=== PATIENT | male | born 1965 | race Caucasian/White ===

== ENCOUNTER 2020-12-17 08:32 | Emergency (ER) | payer OTHER ==
[~2020-12-17] VITALS: Ht 188 cm; Wt 99.8 kg
[2020-12-17] MEDS ORDERED: METPRE4DP PO (08:58)
== END 2020-12-17 09:10 | disposition home or self-care (01) ==
LOC: ER 08:32
DX: T78.40XA Allergy, unspecified, initial encounter (principal); L29.9 Pruritus, unspecified
CPT/HCPCS: 99283; J7512

== ENCOUNTER 2021-03-06 11:14 | Day surgery (SDC) | payer OTHER ==
[~2021-03-06] VITALS: Ht 188 cm; Wt 88.9 kg
[~2021-03-06 11:14] MED LIST: METPRE4DP PO
== END 2021-03-06 13:06 | disposition home or self-care (01) ==
LOC: ORSCSDS 11:14
PROVIDERS: Student in an Organized Health Care Education/Training Program
PROC: 0DBL8ZX Excision of Transverse Colon, Via Natural or Artificial Opening Endoscopic, Diagnostic (ICD-10-PCS; principal; 2021-03-06 12:30)
DX: Z12.11 Encounter for screening for malignant neoplasm of colon (principal); D12.3 Benign neoplasm of transverse colon; K57.30 Diverticulosis of large intestine without perforation or abscess without bleeding
CPT/HCPCS: 88305; J2405; J2704; J7120

== ENCOUNTER 2021-04-13 00:02 | Emergency (ER) | payer OTHER ==
[~2021-04-13] VITALS: Ht 182.9 cm; Wt 93.0 kg
[2021-04-13] MEDS ORDERED: Percocet 5-3251 EACH PO (02:40)
[2021-04-13] MEDS ORDERED: ONDA4ODT MM (02:40)
[2021-04-13] MEDS ORDERED: CEPH500 PO (02:57)
== END 2021-04-13 03:06 | disposition home or self-care (01) ==
LOC: ER 00:02
DX: S68.610A Complete traumatic transphalangeal amputation of right index finger, initial encounter (principal); S68.612A Complete traumatic transphalangeal amputation of right middle finger, initial encounter; S68.614A Complete traumatic transphalangeal amputation of right ring finger, initial encounter; S68.616A Complete traumatic transphalangeal amputation of right little finger, initial encounter; W23.0XXA Caught, crushed, jammed, or pinched between moving objects, initial encounter; Y92.89 Other specified places as the place of occurrence of the external cause; Y99.0 Civilian activity done for income or pay
CPT/HCPCS: 26951; 73120; 90471; 90714; 96365-59; 96375-59; 96376-59; 99284-25; A9270; J0690; J1170; J2405; J3010; J7030

== ENCOUNTER 2021-04-16 18:22 | Emergency (ER) | payer OTHER ==
[~2021-04-16] VITALS: Ht 182.9 cm; Wt 81.7 kg
[~2021-04-16 18:22] MED LIST changes: +CEPH500 PO; +ONDA4ODT MM; +Percocet 5-3251 EACH PO
== END 2021-04-16 20:25 | disposition home or self-care (01) ==
LOC: ER 18:22
DX: Z76.0 Encounter for issue of repeat prescription (principal); Z87.828 Personal history of other (healed) physical injury and trauma
CPT/HCPCS: 99282; A9270

== ENCOUNTER → 2021-05-09 | Outpatient (CLI) | payer OTHER | END | disposition home or self-care (01) | LOC: LAB 10:09 → LAB SHORT 10:09 | DX: L03.113 Cellulitis of right upper limb (principal) | CPT/HCPCS: 87070; 87077; 87147; 87186; 87205 ==

== ENCOUNTER 2023-02-21 18:03 | Inpatient (IN) | payer OTHER ==
[~2023-02-21] VITALS: Ht 188 cm; Wt 103.0 kg
[2023-02-21] VITALS (13 sets, daily range): BP systolic 113–160; BP diastolic 66–100
[2023-02-21 18:18] LABS: BASOPHILS ABSOLUTE AUTO 0.04 K/mm3 (0.00-0.23); BASOPHILS PERCENT AUTO 0 % (0-2); EOSINOPHILS ABSOLUTE AUTO 0.19 K/mm3 (0.00-0.68); EOSINOPHILS PERCENT AUTO 2 % (0-6); Hematocrit 47.4 % (37.0-53.0); Hemoglobin 16.1 g/dL (13.5-17.5); IMMATURE GRAN ABSOLUTE AUTO 0.03 K/mm3 (0.00-0.10); IMMATURE GRAN PERCENT AUTO 0 % (0-1); LYMPHOCYTES PERCENT AUTO 26 % (21-46); MONOCYTES ABSOLUTE AUTO 0.94 K/mm3 (0.16-1.47); MONOCYTES PERCENT AUTO 8 % (4-13); Mean Corpuscular HGB 31.6 pg (26.0-34.0); Mean Corpuscular Volume 93 fL (80-100); NEUTROPHILS ABSOLUTE AUTO 7.75 K/mm3 (1.96-9.15); NEUTROPHILS PERCENT AUTO 64 % (41-73); Platelet Count 263 K/mm3 (150-400); RDW Standard Deviation 44.9 fL (35.1-46.3); Red Blood Cell Count 5.09 M/mm3 (4.30-5.90); White Blood Cell Count 12.15 K/mm3 (4.00-11.30)
[2023-02-21 18:35] LABS: Albumin, Blood 4.1 g/dL (3.4-5.0); Bilirubin, Total 0.5 mg/dL (0.1-1.0); Bun/Creatinine Ratio 22.8 (12.0-20.0); Creatinine, Blood 1.01 mg/dL (0.60-1.20); Globulin, Blood 4.1 g/dL (2.2-4.0); Potassium, Blood 4.2 mmol/L (3.5-5.5); Total Protein, Blood 8.2 g/dL (6.4-8.2)
[2023-02-21 19:17] LABS: Anti-Xa UFH, PHA Monitoring <0.10 IU/mL; Prothrombin Time Results 10.5 Sec (9.7-11.5)
[2023-02-21] MEDS ORDERED: TADALAFIL20 MG PO (20:22)
[2023-02-21] MEDS ORDERED: TRAZ50 PO (20:22)
[2023-02-21] MEDS ORDERED: IBUP600 PO (20:23)
[2023-02-21] MEDS ORDERED: NEURONTIN300 MG PO (20:24)
--- NOTE | 2023-02-21 20:30 | NUR ---
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 REPORT RECEIVED. PT DENIES CHEST PAIN OR PRESSURE. GOOD HISTORIAN. PT'S TO ROOM. PARTICIPATES IN INTERVIEW, AND ASSESSMENT. WILL REVIEW CHART AND PLAN OF CARE FOR THIS PT.
--- NOTE | 2023-02-21 22:19 | NUR ---
DR RAMIREZ COMES BY TO SEE PT. GIVES UPDATE ON PROCEDURE TO PT. ORDERS RECEIVED. PT CONTINUES WITHOUT COMPLAINTS. HAS HAD WATER AND SOME FOOD WITHOUT N/V.
[2023-02-22] VITALS (16 sets, daily range): BP systolic 116–158; BP diastolic 57–127
[2023-02-22 03:46] LABS: BASOPHILS ABSOLUTE AUTO 0.02 K/mm3 (0.00-0.23); BASOPHILS PERCENT AUTO 0 % (0-2); EOSINOPHILS ABSOLUTE AUTO 0.01 K/mm3 (0.00-0.68); EOSINOPHILS PERCENT AUTO 0 % (0-6); Hematocrit 45.7 % (37.0-53.0); Hemoglobin 15.9 g/dL (13.5-17.5); IMMATURE GRAN ABSOLUTE AUTO 0.02 K/mm3 (0.00-0.10); IMMATURE GRAN PERCENT AUTO 0 % (0-1); LYMPHOCYTES ABSOLUTE AUTO 1.48 K/mm3 (0.84-5.20); LYMPHOCYTES PERCENT AUTO 14 % (21-46); MONOCYTES ABSOLUTE AUTO 0.86 K/mm3 (0.16-1.47); MONOCYTES PERCENT AUTO 8 % (4-13); Mean Corpuscular HGB 31.9 pg (26.0-34.0); Mean Corpuscular HGB Conc 34.8 g/dL (31.5-36.5); Mean Corpuscular Volume 92 fL (80-100); Mean Platelet Volume 10.3 fL (9.1-12.4); NEUTROPHILS ABSOLUTE AUTO 8.14 K/mm3 (1.96-9.15); NEUTROPHILS PERCENT AUTO 77 % (41-73); Platelet Count 226 K/mm3 (150-400); RDW Coefficient Variation 13.1 % (11.7-14.2); Red Blood Cell Count 4.98 M/mm3 (4.30-5.90); White Blood Cell Count 10.53 K/mm3 (4.00-11.30)
[2023-02-22 04:24] LABS: Anion Gap 6 mmol/L (6-16); Blood Urea Nitrogen 18 mg/dL (8-24); Bun/Creatinine Ratio 21.5 (12.0-20.0); CO2, Blood 24 mmol/L (21-32); Calcium, Blood 9.3 mg/dL (8.5-10.1); Chloride, Blood 108 mmol/L (98-108); Cholesterol 165 mg/dL (50-200); Creatinine, Blood 0.84 mg/dL (0.60-1.20); Glomerular Filtration Rate 102 (60-); Glucose, Blood 120 mg/dL (70-99); Potassium, Blood 4.1 mmol/L (3.5-5.5); Sodium, Blood 138 mmol/L (136-145)
--- NOTE | 2023-02-22 05:43 | NUR ---
PT HAS NOT HAD ANY COMPLAINTS OF CHEST PAIN OR PRESSURE THIS NIGHT. RIGHT RADIAL SITE WITHOUT OOZE OR HEMATOMA. TEGRADERM DRESSING OVER SITE. ARMBOARD IN PLACE. PT STATES HE HAD A SHORT EPISODE OF NAUSEA THAT HAS PAST. WILL CONTINUE TO MONITOR PT, AND WILL REPORT OFF TO ONCOMING RN.
--- NOTE | 2023-02-22 07:00 | NUR ---
ASSUMPTION OF CARE BEDSIDE REPORT RECEIVED FROM JAMIE WALKER. PT IS ALERT AND ORIENTED, PARTICIPATES IN CONVERSATION. ARMBOARD ON R WRIST, CLEAR TEGADERM OVER CATH SITE. AREA IS SOFT, NONTENDER, NO ACTIVE BLEEDING. PT DENIES CP BUT DOES FEEL "SORE". SINUS LOIS ON MONITOR WITH RATE 40S-50S. BP STABLE. PT BEGINS TO FEEL NAUSEOUS AND HAD 300ML EMESIS OUTPUT. HOSPITALIST CALLED AND RECEIVED ORDER FOR ZOFRAN PRN. PT TALKING TO SPOUSE ON CELL PHONE. CALL LIGHT WITHIN REACH.
[2023-02-22] MEDS ORDERED: ATOR80 PO (11:56)
[2023-02-22] MEDS ORDERED: ASPI81CH PO (11:56)
[2023-02-22] MEDS ORDERED: TICA90TA PO (11:57)
--- NOTE | 2023-02-22 12:15 | NUR ---
DISCHARGE PT AND PT'S SPOUSE PROVIDED DISCHARGE INSTRUCTIONS AND EDUCATION. BOTH VERBALIZE UNDERSTANDING AND DENY FURTHER QUESTIONS. PT DRESSES SELF INDEPENDENTLY. R RADIAL TEGADERM IN PLACE. SITE IS SOFT, NONTENDER, NO SIGNS OF BLEEDING. ARMBOARD IN PLACE. RX FAXED TO [facility] PER PT REQUEST. PT TRANSPORTED VIA WHEELCHAIR WITH ALL BELONGINGS AND ASSISTED INTO SPOUSE'S CAR. PT LEFT DEPARTMENT AT 12:30.
== END 2023-02-22 12:30 | disposition home or self-care (01) | DRG 247 ==
LOC: ER 18:03 → ICUE 18:21
PROVIDERS: Emergency Medicine; Internal Medicine Cardiovascular Disease; ADMIT Nurse Practitioner Acute Care
PROC: 027035Z Dilation of Coronary Artery, One Artery with Two Drug-eluting Intraluminal Devices, Percutaneous Approach (ICD-10-PCS; principal; 2023-02-21)
PROC: B2111ZZ Fluoroscopy of Multiple Coronary Arteries using Low Osmolar Contrast (ICD-10-PCS; 2023-02-21)
PROC: 4A023N7 Measurement of Cardiac Sampling and Pressure, Left Heart, Percutaneous Approach (ICD-10-PCS; 2023-02-21)
PROC: B241ZZ3 Ultrasonography of Multiple Coronary Arteries, Intravascular (ICD-10-PCS; 2023-02-21)
DX: I21.09 ST elevation (STEMI) myocardial infarction involving other coronary artery of anterior wall (principal); I10 Essential (primary) hypertension; R94.31 Abnormal electrocardiogram [ECG] [EKG]; R00.1 Bradycardia, unspecified; E66.9 Obesity, unspecified; D72.829 Elevated white blood cell count, unspecified; I07.1 Rheumatic tricuspid insufficiency; E78.5 Hyperlipidemia, unspecified; G62.9 Polyneuropathy, unspecified; Z98.890 Other specified postprocedural states; Z90.49 Acquired absence of other specified parts of digestive tract; Z89.021 Acquired absence of right finger(s); Z79.891 Long term (current) use of opiate analgesic; Z79.899 Other long term (current) drug therapy; Z68.30 Body mass index [BMI] 30.0-30.9, adult
CPT/HCPCS: 76937; 80048; 80053; 82465; 83036; 84484; 85025; 85347; 85520; 85610; 85730; 92978; 93005; 93010; 93306; 93454; 96374-59; 96375-59; 99152; 99153; 99285-25; A9270; C1725; C1753; C1769; C1874; C1887; C1894; C9600; C9606; J0461; J1644; J2250; J2405; J3010; J7030; J7050; Q9967

== ENCOUNTER 2024-08-27 19:52 | Emergency (ER) | payer MEDICARE, OTHER ==
[~2024-08-27] VITALS: Ht 185.4 cm; Wt 95.2 kg
[~2024-08-27 19:52] MED LIST changes: +ASPI81CH PO; +ATOR80 PO; +IBUP600 PO; +NEURONTIN300 MG PO; +TADALAFIL20 MG PO; +TICA90TA PO; +TRAZ50 PO
[2024-08-27 20:01] VITALS: BP 132/86
[2024-08-27] MEDS ORDERED: Ketorolac Tromethamine 30mg Vial IM ONE (20:30)
[2024-08-27] MEDS ORDERED: RX Prepack 6 Tabs Oxycodone 5mg UD ONE (21:20)
== END 2024-08-27 21:33 | disposition home or self-care (01) ==
LOC: ER 19:52
DX: M54.42 Lumbago with sciatica, left side (principal); Z79.82 Long term (current) use of aspirin; Z91.030 Bee allergy status; Z88.1 Allergy status to other antibiotic agents
CPT/HCPCS: 72100; 96372; 99283-25; A9270; J1885

== ENCOUNTER 2024-08-29 06:07 | Emergency (ER) | payer MEDICARE, OTHER ==
[~2024-08-29] VITALS: Ht 188 cm; Wt 99.8 kg
[2024-08-29] MEDS ORDERED: Lidocaine 4% 1 Patch TOP ONE (07:40)
[2024-08-29] MEDS ORDERED: Morphine Sulfate 4 MG/1 ML Injection IM ONE (07:40)
[2024-08-29] MEDS ORDERED: Ketorolac Tromethamine 30mg Vial IM ONE ×2 (07:40→08:10)
[2024-08-29] MEDS ORDERED: Dexamethasone Sod Phos 10 MG/ML 1ML VIAL IM ONE (07:40)
[2024-08-29] MEDS ORDERED: RX Prepack 6 Tabs Oxycodone 5mg UD ONE (09:10)
[2024-08-29] MEDS ORDERED: CYCL10 PO (09:33)
[2024-08-29] MEDS ORDERED: IBUP600 PO (09:33)
[2024-08-29] MEDS ORDERED: LIDO700A20 TOP (09:33)
[2024-08-29] MEDS ORDERED: OXAYDO5 M1 PO (09:33)
[2024-08-29] MEDS ORDERED: MASOPHEN500 MG PO (09:33)
[2024-08-29 09:42] VITALS: BP 153/88
== END 2024-08-29 09:42 | disposition home or self-care (01) ==
LOC: ER 06:07
DX: M54.50 Low back pain, unspecified (principal); M25.552 Pain in left hip; Z91.030 Bee allergy status; Z88.1 Allergy status to other antibiotic agents; Z79.82 Long term (current) use of aspirin; Z79.899 Other long term (current) drug therapy
CPT/HCPCS: 96372; 99283-25; A9270; J1100; J1885; J2270

== ENCOUNTER 2024-09-01 09:59 | Emergency (ER) | payer MEDICARE, OTHER ==
[~2024-09-01] VITALS: Ht 188 cm; Wt 99.8 kg
[~2024-09-01 09:59] MED LIST changes: +CYCL10 PO; +LIDO700A20 TOP; +MASOPHEN500 MG PO; +OXAYDO5 M1 PO
[2024-09-01 10:29] VITALS: BP 132/99
[2024-09-01 12:14] LABS: BASOPHILS ABSOLUTE AUTO 0.02 K/mm3 (0.00-0.23); BASOPHILS PERCENT AUTO 0 % (0-2); EOSINOPHILS PERCENT AUTO 1 % (0-6); Hematocrit 45.7 % (37.0-53.0); Hemoglobin 15.9 g/dL (13.5-17.5); IMMATURE GRAN ABSOLUTE AUTO 0.03 K/mm3 (0.00-0.10); IMMATURE GRAN PERCENT AUTO 0 % (0-1); LYMPHOCYTES ABSOLUTE AUTO 1.65 K/mm3 (0.84-5.20); LYMPHOCYTES PERCENT AUTO 21 % (21-46); MONOCYTES PERCENT AUTO 10 % (4-13); Mean Corpuscular HGB Conc 34.8 g/dL (31.5-36.5); Mean Corpuscular Volume 92 fL (80-100); Mean Platelet Volume 9.6 fL (9.1-12.4); NEUTROPHILS ABSOLUTE AUTO 5.19 K/mm3 (1.96-9.15); NEUTROPHILS PERCENT AUTO 67 % (41-73); Platelet Count 222 K/mm3 (150-400); RDW Coefficient Variation 12.8 % (11.7-14.2); RDW Standard Deviation 43.7 fL (35.1-46.3); Red Blood Cell Count 4.97 M/mm3 (4.30-5.90); White Blood Cell Count 7.79 K/mm3 (4.00-11.30)
[2024-09-01 12:39] LABS: BAND PERCENT MAN 1 % (0-8); BASOPHILS ABSOLUTE MAN 0.31 K/mm3 (0.00-0.23); BASOPHILS PERCENT MAN 4 % (0-2); EOSINOPHILS ABSOLUTE MAN 0.15 K/mm3 (0.00-0.68); EOSINOPHILS PERCENT MAN 2 % (0-6); LYMPHOCYTES ABSOLUTE MAN 2.64 K/mm3 (0.84-5.20); LYMPHOCYTES PERCENT MAN 34 % (21-46); METAMYELOCYTE ABSOLUTE MAN 0.07 K/mm3 (0.00-0.00); METAMYELOCYTE PERCENT MAN 1 % (0-0); MONOCYTES ABSOLUTE MAN 0.31 K/mm3 (0.16-1.47); MONOCYTES PERCENT MAN 4 % (4-13); NEUTROPHILS ABSOLUTE MAN 4.28 K/mm3 (1.96-9.15); SEG NEUTROPHILS PERCENT MAN 54 % (41-73); TOTAL CELLS COUNTED 100
[2024-09-01 12:43] LABS: Bilirubin, Total 0.8 mg/dL (0.1-1.0); Bun/Creatinine Ratio 19.2 (12.0-20.0); Calcium, Blood 9.5 mg/dL (8.5-10.1); Creatinine, Blood 0.83 mg/dL (0.60-1.20); Globulin, Blood 4.2 g/dL (2.2-4.0); Potassium, Blood 4.2 mmol/L (3.5-5.5); Total Protein, Blood 8.2 g/dL (6.4-8.2)
[2024-09-01] MEDS ORDERED: OxyCODONE 5 mg/Acetamin 325 mg TABLET PO ONE (14:55)
[2024-09-01] MEDS ORDERED: Cyclobenzaprine HCl 10 MG Tab PO ONE (14:55)
[2024-09-01] MEDS ORDERED: HYDROmorphone HCl/Pf 1MG SYR IV ONE (16:40)
[2024-09-01] MEDS ORDERED: Ketorolac Tromethamine 30mg Vial IV ONE (16:40)
[2024-09-01] MEDS ORDERED: Ondansetron HCl 2 MG / ML 2ML Vial IV ONE (16:40)
[2024-09-01] MEDS ORDERED: Dexamethasone Sod Phos 10 MG/ML 1ML VIAL IV ONE (18:25)
[2024-09-01] MEDS ORDERED: OXYACE7.5T PO (18:26)
[2024-09-01] MEDS ORDERED: METPRE4DP PO (18:26)
== END 2024-09-01 18:43 | disposition home or self-care (01) ==
LOC: ER 09:59
PROVIDERS: Physician Assistant
DX: M51.16 Intervertebral disc disorders with radiculopathy, lumbar region (principal); E78.5 Hyperlipidemia, unspecified; G62.9 Polyneuropathy, unspecified; I25.2 Old myocardial infarction; Z95.5 Presence of coronary angioplasty implant and graft; Z91.030 Bee allergy status; Z88.1 Allergy status to other antibiotic agents; Z79.82 Long term (current) use of aspirin; Z79.899 Other long term (current) drug therapy
CPT/HCPCS: 72148; 80053; 85025; 85651; 86140; 96374; 96375; 99283-25; A9270; J1100; J1171; J1885; J2405